=== PATIENT | male | born 1955 | race Caucasian/White ===

== ENCOUNTER 2017-02-10 00:36 | Inpatient (IN) | payer OTHER ==
--- NOTE | 2017-02-10 02:36 | PDOC ---
History of Present Illness - General History Source: Patient Exam Limitations: No Limitations - History of Present Illness Initial Comments: 02/10/17 03:10 The patient is a 61 year old male with significant past medical history of diabetes who presents to the ED for 1 day of intermittent right lower quadrant. Patient reports associated nausea and vomiting. Denies diarrhea. States he is unable to tolerate foods or liquids. Patient denies any radiation of pain to the flank or groin. The patient denies fever, chills, cough, SOB, chest pain, and palpitations. Allergies: NKDA Social History: No alcohol, tobacco, or drug use reported. Past Surgical History: None reported PCP: Dr. Juan Melvin <Carol Duval - Last Filed: 02/10/17 06:08> - General History Source: Patient <SteveEzequiel starr - Last Filed: 02/10/17 06:13> - General Chief Complaint: Pain Stated Complaint: ABD PAIN Time Seen by Provider: 02/10/17 02:33 Past History <Carol Duval - Last Filed: 02/10/17 06:08> - Psycho/Social/Smoking Cessation Hx Suicidal Ideation: No Smoking History: Never smoked Have you smoked in the past 12 months: No Information on smoking cessation initiated: No Hx Alcohol Use: No Drug/Substance Use Hx: No <Ezequiel Waters - Last Filed: 02/10/17 06:13> - Past Medical History Allergies/Adverse Reactions: Allergies Allergy/AdvReac Type Severity Reaction Status Date / Time No Known Allergies Allergy Verified 02/10/17 02:05 Review of Systems - Review of Systems Able to Perform ROS?: Yes Comments:: 02/10/17 03:10 CONSTITUTIONAL: +decrease appetite Absent: fever, no chills, no fatigue EYES: Absent: visual changes ENT: Absent: ear pain, no sore throat CARDIOVASCULAR: Absent: chest pain, no palpitations RESPIRATORY: Absent: cough, no SOB GI: +right lower quadrant pain, nausea, vomiting Absent: no constipation, no diarrhea GENITOURINARY: Absent: dysuria, no frequency, no hematuria MUSCULOSKELETAL: Absent: back pain, no arthralgia, no myalgia SKIN: Absent: rash NEURO: Absent: headache <Carol Duval - Last Filed: 02/10/17 06:08> *Physical Exam - Vital Signs Last Vital Signs Temp Pulse Resp BP Pulse Ox 98.1 F 77 14 138/89 97 02/10/17 02:05 02/10/17 02:05 02/10/17 02:05 02/10/17 02:05 02/10/17 02:05 - Physical Exam Comments: 02/10/17 03:10 GENERAL: Well-appearing, well-nourished. No apparent distress. HEENT: Normocephalic, atraumatic. PERRL, EOM intact. CARDIOVASCULAR: Normal S1, S2. Regular rate and rhythm. PULMONARY: Clear to auscultation bilaterally. ABDOMEN: Soft, non-distended, right lower quadrant tenderness. No rebound or guarding. EXTREMITIES: Normal ROM in all four extremities. No gross deformities. SKIN: Warm, dry. No rash NEUROLOGICAL: No focal neurological deficits. <Carol Duval - Last Filed: 02/10/17 06:08> - Vital Signs Last Vital Signs Temp Pulse Resp BP Pulse Ox 98.1 F 77 14 138/89 97 02/10/17 02:05 02/10/17 02:05 02/10/17 02:05 02/10/17 02:05 02/10/17 02:05 <Ezequiel Waters - Last Filed: 02/10/17 06:13> Heart Score/ECG Review - ECG Impressions Comment:: 02/10/17 06:08 NSR @72bpm Nonspecific T wave abnormality Abnormal ECG <Carol Duval - Last Filed: 02/10/17 06:08> ED Treatment Course - LABORATORY CBC & Chemistry Diagram: 02/10/17 02:54 02/10/17 02:54 - ADDITIONAL ORDERS Additional order review: 02/10/17 02:54 RBC 4.67 MCV 89.9 MCHC 33.7 RDW 13.2 MPV 7.9 Neutrophils % 77.5 Lymphocytes % 9.0 Monocytes % 12.5 H Eosinophils % 0.7 Basophils % 0.3 - RADIOLOGY Radiograph Interpretation: 02/10/17 05:14 Exam: Contrast-enhanced CT abdomen and pelvis Reviewed by Imaging industrial relations specialist: Findings: The lung bases are clear. Hepatic steatosis is noted with sparing around the gallbladder fossa. The gallbladder spleen and pancreas all have a normal unenhanced appearance. The adrenal glands are unremarkable. The left kidney has a normal unenhanced appearance. The right kidney is hydronephrotic with right hydroureter can be traced into the pelvis. An obstructing calculus present in the distal right ureter (image 122) and measures 2 mm in diameter. The appendix is not identified. No cecal thickening or pericecal inflammatory changes are seen. The gastrointestinal tract does not appear obstructed. No thickened or dilated bowel is seen. There is no mesenteric infiltration or free fluid. The urinary bladder, prostate and seminal vesicles are unremarkable. A small fat containing left inguinal hernia is noted. No abdominal or pelvic adenopathy is seen. No lytic or blastic destructive osseous lesions are seen. Impression: Obstructing calculus in the distal right ureter. - Medications Given in the ED: ED Medications Discontinued Medications Generic Name Dose Route Start Last Admin Trade Name Freq PRN Reason Stop Dose Admin Ondansetron HCl 4 mg 02/10/17 02:52 02/10/17 02:53 Zofran Injection IVPUSH 02/10/17 02:53 4 mg ONCE STA Administration <Carol Duval - Last Filed: 02/10/17 06:08> - LABORATORY CBC & Chemistry Diagram: 02/10/17 02:54 02/10/17 02:54 <Ezequiel Waters - Last Filed: 02/10/17 06:13> Medical Decision Making - Medical Decision Making 02/10/17 05:[address] Ivy Saldivar (via answering service) at 5:40 Awaiting call back 02/10/17 06:07 Second call placed to Dr. Saldivar (via answering service) at 6:07 and patient's case was discussed. <Carol Duval - Last Filed: 02/10/17 06:08> - Medical Decision Making 02/10/17 05:31 Dr. Waters: The scribe's documentation has been prepared under my direction and personally reviewed by me in its entirery. I confirm that the note above accurately reflects all work, treatment, procedures, and medical decision making performed by me. 02/10/17 06:13 <Ezequiel Waters - Last Filed: 02/10/17 06:13> *DC/Admit/Observation/Transfer - Attestations Scribe Attestion: 02/10/17 03:10 Documentation prepared by Carol Duval, acting as medical reimbursement specialist for Ezequiel Waters MD/DO. <Carol Duval - Last Filed: 02/10/17 06:08> - Discharge Dispostion Admit: Yes <Ezequiel Waters - Last Filed: 02/10/17 06:13> Diagnosis at time of Disposition: Renal colic on right side Pancreatitis Qualifiers: Chronicity: acute Pancreatitis type: other Acute pancreatitis complication: unspecified Qualified Code(s): K85.80 - Other acute pancreatitis without necrosis or infection - Discharge Dispostion Condition at time of disposition: Stable - Referrals Referrals: Juan Melvin MD [Primary Care Provider] -
[2017-02-10] MEDS ORDERED: SODIUM CHLORIDE 1,000 ML IV STA (02:41)
[2017-02-10] MEDS ORDERED: ONDANSETRON 4 MG/2 ML VIAL IVPUSH STA (02:52)
[2017-02-10 02:57] LABS: BASOPHIL 0.3 % (0-2.0); EOSINOPHIL 0.7 % (0-4.5); MCH 30.3 pg (25.7-33.7); MCHC 33.7 g/dl (32.0-35.9); MEAN CELL VOLUME 89.9 fl (80-96); MEAN PLT VOLUME 7.9 fl (7.5-11.1); NEUTROPHILS 77.5 % (42.8-82.8); PLATELET COUNT 241 K/MM3 (134-434); RDW 13.2 % (11.9-15.9)
[2017-02-10 03:14] LABS: URINE APPEARANCE CLEAR; URINE BILIRUBIN NEGATIVE (NEGATIVE); URINE BLOOD NEGATIVE (NEGATIVE); URINE COLOR YELLOW; URINE GLUCOSE (UA) 3+ (NEGATIVE); URINE KETONE NEGATIVE (NEGATIVE); URINE LEUK ESTERASE NEGATIVE (NEGATIVE); URINE NITRITE NEGATIVE (NEGATIVE); URINE UROBILINOGEN NEGATIVE E.U./dl (0.2-1.0)
[2017-02-10 03:16] LABS: INR 0.99 (0.82-1.09); PROTHROMBIN TIME (PATIENT) 10.9 SEC (9.98-11.88)
[2017-02-10 03:17] LABS: URINE PROTEIN 1+ (NEGATIVE)
[2017-02-10 03:19] LABS: URINE MUCUS RARE; URINE WBC <1 /hpf (3-5)
[2017-02-10 03:29] LABS: ALBUMIN 3.6 g/dl (3.4-5.0); BILIRUBIN,TOTAL 0.5 mg/dL (0.2-1.0); CALCIUM 9.3 mg/dL (8.5-10.1); COCKROFT - GAULT 65.83; CREATININE 1.4 mg/dL (0.7-1.3); TOT PROT 6.8 g/dl (6.4-8.2)
[2017-02-10] MEDS ORDERED: morphine CARPU-JECT 2 MG/1 ML DISP.SYRIN IVPUSH ONE (05:28)
[2017-02-10] MEDS ORDERED: morphine CARPU-JECT 4 MG/1 ML DISP.SYRIN ONE ×2 (05:31→08:04)
[2017-02-10] MEDS ORDERED: ONDANSETRON 4 MG/2 ML VIAL IVPB PRN (07:08)
[2017-02-10] MEDS: morphine CARPU-JECT 4 MG/1 ML DISP.SYRIN IVPUSH PRN ×3 (08:00→21:28)
[2017-02-10] MEDS: DEXTROSE 5%-NORMAL SALINE 1,000 ML IV SCH ×2 (08:00→16:46)
--- NOTE | 2017-02-10 09:13 | HP ---
Admitting History and Physical - Admission History of Present Illness: 61 year old male with significant past medical history of diabetes who presents to the ED for 1 day of intermittent right lower quadrant. Patient reports associated nausea and vomiting. Denies diarrhea. States he is unable to tolerate foods or liquids. Patient denies any radiation of pain to the flank or groin. 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 Cardiovascular: No: CAD, HTN, Hyperlipdemia Renal/: Yes: Renal Calculi - Smoking History Smoking history: Never smoked Have you smoked in the past 12 months: No - Alcohol/Substance Use Hx Alcohol Use: No Home Medications - Allergies Allergies/Adverse Reactions: Allergies Allergy/AdvReac Type Severity Reaction Status Date / Time No Known Allergies Allergy Verified 02/10/17 02:05 Review of Systems - Review of Systems Cardiovascular: denies: Chest Pain Gastrointestinal: reports: Abdominal Pain Genitourinary: reports: Flank Pain (RT) Physical Examination Vital Signs: Vital Signs Temperature 98.2 F 02/10/17 08:00 Pulse Rate 80 02/10/17 08:00 Respiratory Rate 18 02/10/17 08:00 Blood Pressure 133/74 02/10/17 08:00 O2 Sat by Pulse Oximetry (%) 99 02/10/17 08:00 Cardiovascular: Yes: Regular Rate and Rhythm Respiratory: Yes: Regular, CTA Bilaterally Gastrointestinal: Yes: Normal Bowel Sounds, Soft, Tenderness (RT FLANK/RLQ) Renal/: Yes: CVA Tenderness - Right Imaging - Results Cat Scan: Report Reviewed Problem List - Problems (1) Renal colic on right side Assessment/Plan: UROLOGY CONSULT MONITOR RENAL FUNCTION PAIN CONTROL Code(s): N23 - UNSPECIFIED RENAL COLIC (2) Pancreatitis Assessment/Plan: ATYPICAL SYMPTOMS REPEAT LABS GI CONSULT Code(s): K85.90 - ACUTE PANCREATITIS WITHOUT NECROSIS OR INFECTION, UNSP Qualifiers: Chronicity: acute Pancreatitis type: other Acute pancreatitis complication: unspecified Qualified Code(s): K85.80 - Other acute pancreatitis without necrosis or infection; K85.8 - Other acute pancreatitis (3) Renal insufficiency Assessment/Plan: MONITOR Code(s): N28.9 - DISORDER OF KIDNEY AND URETER, UNSPECIFIED (4) Diabetes Assessment/Plan: A1C BGM ENDO Code(s): E11.9 - TYPE 2 DIABETES MELLITUS WITHOUT COMPLICATIONS
[2017-02-10] MEDS: LEVOFLOXACIN 500 MG IVPB 100 ML IVPB SCH (10:16)
--- NOTE | 2017-02-10 10:49 | EKG ---
Test Reason : Blood Pressure : / mmHG Vent. Rate : 072 BPM Atrial Rate : 072 BPM P-R Int : 152 ms QRS Dur : 086 ms QT Int : 418 ms P-R-T Axes : 033 035 004 degrees QTc Int : 457 ms NORMAL SINUS RHYTHM NONSPECIFIC T WAVE ABNORMALITY ABNORMAL ECG NO PREVIOUS ECGS AVAILABLE Confirmed by CHARAN KISER MD ([id number]) on 02/10/2017 10:48:33 AM Referred By: Confirmed By:CHARAN KISER MD
[2017-02-10 11:04] LABS: ALBUMIN 3.4 g/dl (3.4-5.0); ALK PHOS 69 U/L (45-117); AMYLASE 210 U/L (25-115); ANION GAP 9 (8-16); BILIRUBIN,TOTAL 0.7 mg/dL (0.2-1.0); CALCIUM 8.7 mg/dL (8.5-10.1); CO2 29 mmol/L (21-32); CREATININE 1.2 mg/dL (0.7-1.3); GLUCOSE,RANDOM 178 mg/dL (74-106); SGOT/AST 17 U/L (15-37); SGPT/ALT 28 U/L (12-78); TOT PROT 6.3 g/dl (6.4-8.2)
[2017-02-10 11:08] LABS: BASOPHIL 0.5 % (0-2.0); EOSINOPHIL 1.4 % (0-4.5); MCH 30.7 pg (25.7-33.7); MCHC 34.2 g/dl (32.0-35.9); MEAN CELL VOLUME 89.9 fl (80-96); MEAN PLT VOLUME 7.5 fl (7.5-11.1); PLATELET COUNT 217 K/MM3 (134-434); RDW 13.1 % (11.9-15.9)
[2017-02-10 11:30] LABS: ALBUMIN 3.3 g/dl (3.4-5.0); ALK PHOS 64 U/L (45-117); ANION GAP 8 (8-16); BILIRUBIN,TOTAL 0.7 mg/dL (0.2-1.0); CALCIUM 8.6 mg/dL (8.5-10.1); CO2 30 mmol/L (21-32); COCKROFT - GAULT 83.78; CREATININE 1.1 mg/dL (0.7-1.3); GLUCOSE,RANDOM 190 mg/dL (74-106); SGOT/AST 16 U/L (15-37); SGPT/ALT 27 U/L (12-78); TOT PROT 6.1 g/dl (6.4-8.2)
[2017-02-10] MEDS: PANTOPRAZOLE SODIUM 100 ML IVPB SCH (12:56)
[2017-02-10] MEDS: INSULIN SLIDING SCALE (NOVOLOG) 1 VIAL SQ SCH ×3 (13:02→21:39)
--- NOTE | 2017-02-10 13:04 | PN ---
Progress Note (short form) - Note Progress Note: ID consult dictated imp/reccd 61 year old man with DM for 15 eyars, RECENTLY ESTARTED ON TRULICITY for DM- admitted with RLQ pain and nausea and vomiting no fevers or chills no hematuria remote history of nephrolithiasis in the past I think he has 2 processes PANCREATITIS- I suspect secondary to TRULICITY- endocrine and gi consult pending Nephrolithiasis- ct scan with obstructing stone on the right - urology to see Problem List - Problems (1) Pancreatitis Code(s): K85.90 - ACUTE PANCREATITIS WITHOUT NECROSIS OR INFECTION, UNSP Qualifiers: Chronicity: acute Pancreatitis type: other Acute pancreatitis complication: unspecified Qualified Code(s): K85.80 - Other acute pancreatitis without necrosis or infection; K85.8 - Other acute pancreatitis (2) Renal colic on right side Code(s): N23 - UNSPECIFIED RENAL COLIC (3) Diabetes Code(s): E11.9 - TYPE 2 DIABETES MELLITUS WITHOUT COMPLICATIONS
--- NOTE | 2017-02-10 14:47 | CON.GI ---
Consult Consult Specialty:: gastroenterology Referred by:: Dr Rubio - History of Present Illness History of Present Illness: 61 y/o male with PMH of Diabetes, on Trulicity was doing well until he was awakened by severe rlq pain 1 am Thursday morning. This was associated with nausea and vomiting. Pain was persistent up to the time of admission. He denies constipation, diarrhea, rectal bleeding and weight loss. In the ER he was noted to have elevated WBC count and lipase. The cat scan revealed normal pancreas. Urinalysis negative for hematuria. 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 Cardio/Vascular: No: CAD, HTN, Hyperlipdemia Renal/: Yes: Renal Calculi - Alcohol/Substance Use Hx Alcohol Use: No - Smoking History Smoking history: Never smoked Have you smoked in the past 12 months: No Home Medications - Allergies Allergies/Adverse Reactions: Allergies Allergy/AdvReac Type Severity Reaction Status Date / Time No Known Allergies Allergy Verified 02/10/17 02:05 - Home Medications Home Medications: Ambulatory Orders Dulaglutide [Trulicity] 1.5 mg SQ WEEKLY 02/10/17 Family Disease History - Family Disease History Family History: Denies (colon and gastric cancer) Review of Systems - Review of Systems Constitutional: denies: Fever Eyes: denies: Blind Spots HENT: denies: Difficult Swallowing Cardiovascular: denies: Chest Pain Respiratory: denies: SOB Gastrointestinal: reports: Abdominal Pain (--RLQ). denies: No Symptoms, Bloating, Dysphagia, Indigestion, Nausea Physical Exam-GI Vital Signs: Vital Signs Temperature 98.2 F 02/10/17 08:00 Pulse Rate 75 02/10/17 13:03 Respiratory Rate 18 02/10/17 13:03 Blood Pressure 126/68 02/10/17 13:03 O2 Sat by Pulse Oximetry (%) 99 02/10/17 13:03 Constitutional: Yes: Obese Eyes: Yes: Conjunctiva Clear HENT: Yes: Atraumatic Neck: Yes: Trachea Midline Cardiovascular: Yes: Regular Rate and Rhythm Respiratory: Yes: CTA Bilaterally ...Palpate: Yes: Soft, Tenderness (--rlq). No: Firm/Rigid, Guarding, Hepatomegaly, Mass, Splenomegaly ...Percussion: Yes: Tympanitic Labs: CBC, BMP 02/10/17 10:50 02/10/17 10:50 INR, PTT INR 0.99 (0.82-1.09) 02/10/17 02:54 Imaging - Results Cat Scan: Image Reviewed ( no evidence of appendicitis) Problem List - Problems (1) RLQ abdominal pain Assessment/Plan: etiology unclear associated with elevated WBC r/o ischemia, appendicitis, neoplasm R> IV hydration surgical consultation lupus antibody hematology consult for hypercoaguable state Code(s): R10.31 - RIGHT LOWER QUADRANT PAIN
[2017-02-10 16:11] VITALS: BMI 29.6
[2017-02-10] MEDS: ACETAMINOPHEN 1000 MG/100 ML VIAL (NON FORMULARY) IVPB PRN (18:22)
--- NOTE | 2017-02-10 20:11 | CONS ---
DATE OF CONSULTATION: 02/10/2017 REQUESTED BY: Maria Dolores Rubio MD This is a 61-year-old man with a 15-year history of diabetes. He is followed by Dr. Melvin. He comes to the emergency room with 1 day of intermittent right lower quadrant pain. He woke up with this on Thursday morning, cast iron dipper. He tried to go to work. He went to work for half the day. He came home. He started having nausea and vomiting. He was unable to eat and he came to the emergency room. There was no hematuria, or fevers or chills. His past medical history is notable for prior nephrolithiasis and diabetes. He has no known drug allergies. MEDICATIONS: He was recently started on Trulicity, which he has been taking for 2 weeks now. 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 There is no history of any substance use. REVIEW OF SYSTEMS: As per HPI. He has no diarrhea. His abdominal pain is improving. He is resting comfortably. PHYSICAL EXAMINATION: Vital Signs: Temperature is 98.2. Pulse of 80. Blood pressure 133/74. Respiratory rate is 18. Saturating 99% on room air. HEENT: Normocephalic. His eyes are anicteric. Neck: Supple. Lungs: Clear to auscultation. Heart: Regular rate and rhythm. Abdomen: Soft, currently nontender. Extremities: Without edema. Labs are notable for white count of 15 on admission, 12 this morning. Hemoglobin is 13.5. BUN 24 and creatinine 1.4 on admission, now BUN 21 and creatinine 1.1. His lipase was 4649, which improved to 1484. Urinalysis is notable for 3+ glucose and 1+ protein. There is no blood. He had a CAT scan of his abdomen and pelvis that is notable for a 2.5-mm obstructing right ureterovesical junction stone with mild right hydro and hydroureter. In summary, this is a 61-year-old man with diabetes, who I think has pancreatitis, I suspect secondary to Trulicity. Endocrine and GI consults are pending. Number 2, nephrolithiasis with obstructing stone: Urology is to see, and he will continue on Levaquin at this time. Further recommendations to follow based on his clinical course. RAMONASukumar [id number]
[2017-02-10] MEDS ORDERED: ZOLPIDEM TARTRATE 5 MG TABLET PO PRN (20:20)
--- NOTE | 2017-02-11 00:27 | CONSULT ---
Consult Consult Specialty:: endocrine/diabetes mellitus Referred by:: dr.annabi vergara Reason for Consultation:: diabetes mellitus - History of Present Illness Chief Complaint: high sugars,and abdominal pain History of Present Illness: 61 y/o male with PMH of Diabetes, on Trulicity was doing well until he was awakened by severe rlq pain 1 am Thursday morning. This was associated with nausea and vomiting. Pain was persistent up to the time of admission. He denies constipation, diarrhea, rectal bleeding and weight loss. 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 Cardio/Vascular: No: CAD, HTN, Hyperlipdemia Renal/: Yes: Renal Calculi - Alcohol/Substance Use Hx Alcohol Use: No - Smoking History Smoking history: Never smoked Have you smoked in the past 12 months: No Home Medications - Allergies Allergies/Adverse Reactions: Allergies Allergy/AdvReac Type Severity Reaction Status Date / Time No Known Allergies Allergy Verified 02/10/17 02:05 - Home Medications Home Medications: Ambulatory Orders Dulaglutide [Trulicity] 1.5 mg SQ WEEKLY 02/10/17 Review of Systems - Review of Systems Constitutional: reports: Loss of Appetite, Weakness Eyes: reports: No Symptoms HENT: reports: No Symptoms Neck: reports: No Symptoms Cardiovascular: reports: No Symptoms Respiratory: reports: No Symptoms Gastrointestinal: reports: Constipation Genitourinary: reports: No Symptoms Breasts: reports: No Symptoms Reported Musculoskeletal: reports: No Symptoms Integumentary: reports: No Symptoms Neurological: reports: No Symptoms Endocrine: reports: Unexplained Weight Gain Hematology/Lymphatic: reports: No Symptoms Psychiatric: reports: No Symptoms Physical Exam Vital Signs: Vital Signs Temperature 98.3 F 02/10/17 18:00 Pulse Rate 64 02/10/17 18:00 Respiratory Rate 18 02/10/17 18:00 Blood Pressure 150/88 02/10/17 18:00 O2 Sat by Pulse Oximetry (%) 96 02/10/17 16:13 Constitutional: Yes: Anxious Eyes: Yes: EOM Intact HENT: Yes: Normocephalic Neck: Yes: Trachea Midline Cardiovascular: Yes: Regular Rate and Rhythm Respiratory: Yes: CTA Bilaterally Gastrointestinal: Yes: Abdomen, Obese, Hypoactive Bowel Sounds, Tenderness ...Rectal Exam: Yes: Deferred Renal/: Yes: WNL Breast(s): Yes: WNL Musculoskeletal: Yes: WNL Extremities: Yes: WNL Edema: No Peripheral Pulses WNL: Yes Integumentary: Yes: WNL Neurological: Yes: WNL, Alert Labs: CBC, BMP 02/10/17 10:50 02/10/17 10:50 Problem List - Problems (1) Diabetes Code(s): E11.9 - TYPE 2 DIABETES MELLITUS WITHOUT COMPLICATIONS (2) Pancreatitis Code(s): K85.90 - ACUTE PANCREATITIS WITHOUT NECROSIS OR INFECTION, UNSP Qualifiers: Chronicity: acute Pancreatitis type: other Acute pancreatitis complication: unspecified Qualified Code(s): K85.80 - Other acute pancreatitis without necrosis or infection; K85.8 - Other acute pancreatitis (3) RLQ abdominal pain Code(s): R10.31 - RIGHT LOWER QUADRANT PAIN (4) Renal colic on right side Code(s): N23 - UNSPECIFIED RENAL COLIC Assessment/Plan Current Active Problems Diabetes (Acute) Pancreatitis (Acute) RLQ abdominal pain (Acute) Renal colic on right side (Acute) Renal insufficiency (Acute) diabetes mellitus/gastroparesis renal nephrolithiasis hydronephrosis right renal colic Abnormal Lab Results 02/10/17 02/10/17 02/10/17 02:54 02:54 03:06 WBC 15.0 H Monocytes % 12.5 H BUN 24 H Creatinine 1.4 H Random Glucose 289 H Hemoglobin A1c % B-Natriuretic Peptide 134.62 H Total Protein Albumin Total Amylase Lipase 4649 H Urine Protein 1+ H Urine Glucose (UA) 3+ H 02/10/17 02/10/17 02/10/17 09:30 10:50 10:50 WBC 12.0 H Monocytes % 13.5 H BUN 20 H 21 H Creatinine Random Glucose 178 H D 190 H Hemoglobin A1c % B-Natriuretic Peptide Total Protein 6.3 L 6.1 L Albumin 3.3 L Total Amylase 210 H Lipase 1484 H Urine Protein Urine Glucose (UA) 02/10/17 10:50 WBC Monocytes % BUN Creatinine Random Glucose Hemoglobin A1c % 7.7 H B-Natriuretic Peptide Total Protein Albumin Total Amylase Lipase Urine Protein Urine Glucose (UA) plan; bgm qid novolog scale ivfluid rehydration gu consult cmp and cbc Current Medications Generic Name Dose Route Start Last Admin Trade Name Freq PRN Reason Stop Dose Admin Acetaminophen 1,000 mg 02/10/17 07:08 02/10/17 18:22 Ofirmev Injection - IVPB 02/11/17 01:09 1,000 mg Q6H PRN Administration FEVER OR PAIN Dextrose/Sodium Chloride 1,000 mls @ 75 mls/hr 02/10/17 07:15 02/10/17 16:46 D5-Ns - IV 75 mls/hr ASDIR DARLENE Administration Pantoprazole Sodium 100 mls @ 200 mls/hr 02/10/17 10:00 02/10/17 12:56 Protonix 40mg Ivpb (Pre-Docked) IVPB 200 mls/hr DAILY DARLENE Administration Levofloxacin 100 mls @ 100 mls/hr 02/10/17 10:00 02/10/17 10:16 Levaquin 500 Mg Premixed Ivpb - IVPB 100 mls/hr DAILY DARLENE Administration Insulin Aspart 1 vial 02/10/17 11:00 02/10/17 21:39 Novolog Vial Sliding Scale - SQ Not Given ACHS DARLENE Protocol Morphine Sulfate 4 mg 02/10/17 07:08 02/10/17 21:28 Morphine Injection - IVPUSH 4 mg Q4H PRN Administration PAIN Ondansetron HCl 4 mg 02/10/17 07:08 Zofran Injection IVPB Q6H PRN NAUSEA Zolpidem Tartrate 10 mg 02/10/17 20:20 02/10/17 21:28 Ambien - PO 10 mg HS PRN Administration INSOMNIA
[2017-02-11] MEDS: ACETAMINOPHEN 1000 MG/100 ML VIAL (NON FORMULARY) IVPB PRN (00:44)
[2017-02-11] MEDS: morphine CARPU-JECT 4 MG/1 ML DISP.SYRIN IVPUSH PRN ×3 (05:42→14:18)
[2017-02-11] MEDS: DEXTROSE 5%-NORMAL SALINE 1,000 ML IV SCH ×3 (05:48→22:50)
[2017-02-11] MEDS: INSULIN SLIDING SCALE (NOVOLOG) 1 VIAL SQ SCH ×4 (06:16→22:11)
[2017-02-11 07:20] LABS: BASOPHIL 0.7 % (0-2.0); EOSINOPHIL 1.4 % (0-4.5); MCH 30.8 pg (25.7-33.7); MCHC 34.4 g/dl (32.0-35.9); MEAN CELL VOLUME 89.4 fl (80-96); MEAN PLT VOLUME 7.7 fl (7.5-11.1); NEUTROPHILS 75.2 % (42.8-82.8); PLATELET COUNT 217 K/MM3 (134-434); RDW 12.9 % (11.9-15.9); WHITE BLOOD COUNT 12.2 K/mm3 (4.0-10.0)
[2017-02-11 07:48] LABS: ALBUMIN 3.3 g/dl (3.4-5.0); ANION GAP 6 (8-16); CALCIUM 8.5 mg/dL (8.5-10.1); CO2 31 mmol/L (21-32)
[2017-02-11 07:54] LABS: ALK PHOS 70 U/L (45-117); BILIRUBIN,TOTAL 0.8 mg/dL (0.2-1.0); COCKROFT - GAULT 94.4; GLUCOSE,RANDOM 154 mg/dL (74-106); SGOT/AST 14 U/L (15-37); SGPT/ALT 25 U/L (12-78); TOT PROT 6.3 g/dl (6.4-8.2)
--- NOTE | 2017-02-11 09:00 | PN ---
Progress Note (short form) - Note Progress Note: continued intermittent RLQ pain radiating to the flank no nausea or vomiting Vital Signs Period Temp Pulse Resp BP Sys/Blake Pulse Ox Last 24 Hr 98.1 F-98.3 F 60-78 18-18 118-164/65-96 96-99 cor-rrr lungs clear abd- R cvat, RLQ pain on palpation ext no edema CBC, BMP 02/11/17 06:00 02/11/17 06:00 a/p PANCREATITIS- I suspect secondary to TRULICITY- endocrine and gi consult noted Nephrolithiasis- ct scan with obstructing stone on the right - urology to see on levaquin, no urine culture was sent prior to antiibotics, wbc trending down, would continue DM Problem List - Problems (1) Pancreatitis Code(s): K85.90 - ACUTE PANCREATITIS WITHOUT NECROSIS OR INFECTION, UNSP Qualifiers: Qualified Code(s): K85.80 - Other acute pancreatitis without necrosis or infection; K85.8 - Other acute pancreatitis (2) Renal colic on right side Code(s): N23 - UNSPECIFIED RENAL COLIC (3) Diabetes Code(s): E11.9 - TYPE 2 DIABETES MELLITUS WITHOUT COMPLICATIONS
--- NOTE | 2017-02-11 09:02 | CON.GU ---
Consult Consult Specialty:: urolgogy Reason for Consultation:: right hydronephrosis with right uvj stone - History of Present Illness Chief Complaint: right renal colic History of Present Illness: Patient with history of right hydronephrosis secondary to right uvj stone. Patient with continued pain with nausea. Denies gross hematuria, fever, or chills Patient is currently not experiencing vomiting. Patient with signinficant pain. 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 Cardio/Vascular: No: CAD, HTN, Hyperlipdemia Renal/: Yes: Renal Calculi - Alcohol/Substance Use Hx Alcohol Use: No - Smoking History Smoking history: Never smoked Have you smoked in the past 12 months: No Home Medications - Allergies Allergies/Adverse Reactions: Allergies Allergy/AdvReac Type Severity Reaction Status Date / Time No Known Allergies Allergy Verified 02/10/17 02:05 - Home Medications Home Medications: Ambulatory Orders Dulaglutide [Trulicity] 1.5 mg SQ WEEKLY 02/10/17 Physical Exam- Vital Signs: Vital Signs Temperature 98.3 F 02/10/17 18:00 Pulse Rate 64 02/10/17 18:00 Respiratory Rate 18 02/10/17 18:00 Blood Pressure 150/88 02/10/17 18:00 O2 Sat by Pulse Oximetry (%) 98 02/10/17 22:00 Constitutional: Yes: Well Nourished, No Distress, Anxious Eyes: Yes: WNL, Conjunctiva Clear, EOM Intact HENT: Yes: WNL, Atraumatic, Normocephalic Neck: Yes: WNL, Supple, Trachea Midline Cardiovascular: Yes: WNL, Regular Rate and Rhythm Respiratory: Yes: WNL, Regular Gastrointestinal: Yes: Normal Bowel Sounds, Soft Renal/: Yes: CVA Tenderness - Right Kidneys: Yes: FLank Pain Right Pelvis: Yes: Bladder Non Palpable Testicles: Yes: WNL Scrotum: Yes: WNL Penis: Yes: WNL Prostate Exam: Yes: Asymmetrical, Swollen Musculoskeletal: Yes: WNL Extremities: Yes: WNL Labs: CBC, BMP 02/11/17 06:00 02/11/17 06:00 Assessment/Plan impression right hydronephrosis with right upj stone and intractable pain plan patient is to be scheduled emergently for righureteral stent placement and stone basketing today
[2017-02-11] MEDS ORDERED: TAMSULOSIN HCL 0.4 MG CAP.ER.24H (FP) PO ONE (09:30)
[2017-02-11] MEDS: LEVOFLOXACIN 500 MG IVPB 100 ML IVPB SCH (09:39)
[2017-02-11] MEDS: PANTOPRAZOLE SODIUM 100 ML IVPB SCH (09:40)
[2017-02-11] MEDS ORDERED: ACETAMINOPHEN 1000 MG/100 ML VIAL (NON FORMULARY) IVPB PRN ×2 (10:34→20:37)
[2017-02-11] MEDS ORDERED: ePHEDrine SULFATE 50 MG/1 ML AMPULE ONE (19:15)
[2017-02-11] MEDS ORDERED: MIDAZOLAM HCL 2 MG/2 ML SINGLE DOSE VIAL ONE (19:16)
[2017-02-11] MEDS ORDERED: ROCURONIUM BROMIDE 50 MG/5 ML VIAL ONE (19:16)
[2017-02-11] MEDS ORDERED: SUCCINYLCHOLINE CHLORIDE 200 MG/10 ML VIAL ONE (19:16)
[2017-02-11] MEDS ORDERED: PROPOFOL 20 ML ONE ×3 (19:16)
[2017-02-11] MEDS ORDERED: LABETALOL HCL 5 MG/1 ML (100MG/20 ML VIAL) ONE ×2 (19:25→19:28)
--- NOTE | 2017-02-11 19:45 | PN ---
Progress Note, Physician Chief Complaint: RLQ ABDOMINAL PAIN History of Present Illness: 61 year old male with significant past medical history of diabetes who presents to the ED for 1 day of intermittent right lower quadrant. Patient reports associated nausea and vomiting. Denies diarrhea. States he is unable to tolerate foods or liquids. Patient denies any radiation of pain to the flank or groin. CT ABDOMEN SHOWED MILD HYDRONEPHROSIS OF RIGHT KIDNEY AND RIGHT UVJ STONE. RIGHT URETEROSCOPY WITH STONE BASKETING DONE TODAY. - Current Medication List Current Medications: Active Medications Acetaminophen (Ofirmev Injection -) 1,000 mg IVPB Q6H PRN PRN Reason: FEVER OR PAIN Stop: 02/12/17 04:35 Last Admin: 02/11/17 11:31 Dose: 1,000 mg Dextrose/Sodium Chloride (D5-Ns -) 1,000 mls @ 75 mls/hr IV ASDIR DARLENE Last Admin: 02/11/17 09:46 Dose: Not Given Pantoprazole Sodium (Protonix 40mg Ivpb (Pre-Docked)) 100 mls @ 200 mls/hr IVPB DAILY [facility] Last Admin: 02/11/17 09:40 Dose: 200 mls/hr Levofloxacin (Levaquin 500 Mg Premixed Ivpb -) 100 mls @ 100 mls/hr IVPB DAILY [facility] Last Admin: 02/11/17 09:39 Dose: 100 mls/hr Insulin Aspart (Novolog Vial Sliding Scale -) 1 vial SQ ACHS DARLENE PRN Reason: Protocol Last Admin: 02/11/17 17:34 Dose: Not Given Morphine Sulfate (Morphine Injection -) 4 mg IVPUSH Q4H PRN PRN Reason: PAIN Last Admin: 02/11/17 14:18 Dose: 4 mg Ondansetron HCl (Zofran Injection) 4 mg IVPB Q6H PRN PRN Reason: NAUSEA Last Admin: 02/11/17 14:08 Dose: 4 mg Zolpidem Tartrate (Ambien -) 10 mg PO HS PRN PRN Reason: INSOMNIA Last Admin: 02/10/17 21:28 Dose: 10 mg - Objective Vital Signs: Vital Signs Temperature 98.3 F 02/10/17 18:00 Pulse Rate 64 02/10/17 18:00 Respiratory Rate 18 02/11/17 09:00 Blood Pressure 150/88 02/10/17 18:00 O2 Sat by Pulse Oximetry (%) 98 02/11/17 09:00 Constitutional: Yes: Well Nourished, No Distress, Calm Cardiovascular: Yes: Regular Rate and Rhythm Respiratory: Yes: Regular Gastrointestinal: Yes: Normal Bowel Sounds, Tenderness (RLQ) Musculoskeletal: Yes: WNL Edema: No Labs: CBC, BMP 02/11/17 06:00 02/11/17 06:00 INR, PTT INR 0.99 (0.82-1.09) 02/10/17 02:54 Problem List - Problems (1) Diabetes Assessment/Plan: UNCONTROLLED WITH HGA1C OF 7.7 Code(s): E11.9 - TYPE 2 DIABETES MELLITUS WITHOUT COMPLICATIONS (2) RLQ abdominal pain Assessment/Plan: DUE TO RIGHT HYDRONEPHROSIS. URETEROSCOPY TODAY Code(s): R10.31 - RIGHT LOWER QUADRANT PAIN (3) Renal colic on right side Code(s): N23 - UNSPECIFIED RENAL COLIC (4) Renal insufficiency Code(s): N28.9 - DISORDER OF KIDNEY AND URETER, UNSPECIFIED (5) Abnormal pancreas function test Assessment/Plan: NO ACUTE PANCREATITIS SEEN ON CT ABDOMEN, COULD BE SECONDARY TO RENAL INSUFFICIENCY? OR IDIOPATHIC. MONITOR LABS FOR NOW Code(s): R94.8 - ABNORMAL RESULTS OF FUNCTION STUDIES OF ORGANS AND SYSTEMS Assessment/Plan LABS PAIN MANAGEMENT PHYSICAL THERAPY IV ABX ID AND GI CONSULT
--- NOTE | 2017-02-11 20:01 | OP ---
Operative Note - Note: Operative Date: 02/11/17 Pre-Operative Diagnosis: right ureteral stone with hydronephrosis Operation: cystoscopy/right retrograde pyelogram/right urereteroscopic stone basketing/right ureteral stent placement Findings: 4mm distal stone Post-Operative Diagnosis: Same as Pre-op Surgeon: Molina Griffin Anesthesia: General Specimens Removed: right ureteral stone Drains & Tubes with Location: 6 fr/24 cm stent Operative Report Dictated: Yes
[2017-02-11] MEDS ORDERED: PROMETHAZINE HCL 25 MG/1 ML VIAL IVPUSH PRN (20:21)
[2017-02-11] MEDS ORDERED: ONDANSETRON 4 MG/2 ML VIAL IVPUSH PRN (20:21)
[2017-02-11] MEDS ORDERED: LACTATED RINGERS SOLUTION 1,000 ML IV SCH (20:30)
[2017-02-11] MEDS ORDERED: morphine CARPU-JECT 4 MG/1 ML DISP.SYRIN IVPUSH PRN (20:37)
[2017-02-11] MEDS ORDERED: ONDANSETRON 4 MG/2 ML VIAL IVPB PRN (20:37)
[2017-02-11] MEDS ORDERED: ZOLPIDEM TARTRATE 5 MG TABLET PO PRN (20:37)
[2017-02-11] MEDS ORDERED: PATIENT'S OWN MEDICATION (NON-FORMULARY) (Dulaglutide [Trulicity] 1.5 MG) SQ SCH (20:37)
--- NOTE | 2017-02-12 00:24 | PN ---
Progress Note (short form) - Note Progress Note: right lq pain,renal colic has persistant pain relieved with tylenol iv Abnormal Lab Results 02/11/17 02/11/17 06:00 06:00 WBC 12.2 H Monocytes % 12.3 H Anion Gap 6 L Random Glucose 154 H AST 14 L Total Protein 6.3 L Albumin 3.3 L Laboratory Results - last 24 hr 02/11/17 02/11/17 02/11/17 05:40 06:00 06:00 WBC 12.2 H RBC 4.51 Hgb 13.9 Hct 40.3 MCV 89.4 MCHC 34.4 RDW 12.9 Plt Count 217 MPV 7.7 Neutrophils % 75.2 Lymphocytes % 10.4 D Monocytes % 12.3 H Eosinophils % 1.4 Basophils % 0.7 Sodium 140 Potassium 3.7 Chloride 103 Carbon Dioxide 31 Anion Gap 6 L BUN 17 Creatinine 1.0 Creat Clearance w eGFR > 60 POC Glucometer 182 Random Glucose 154 H Calcium 8.5 Total Bilirubin 0.8 AST 14 L ALT 25 Alkaline Phosphatase 70 Total Protein 6.3 L Albumin 3.3 L 02/11/17 02/11/17 02/11/17 11:22 17:32 21:30 WBC RBC Hgb Hct MCV MCHC RDW Plt Count MPV Neutrophils % Lymphocytes % Monocytes % Eosinophils % Basophils % Sodium Potassium Chloride Carbon Dioxide Anion Gap BUN Creatinine Creat Clearance w eGFR POC Glucometer 189 219 175 Random Glucose Calcium Total Bilirubin AST ALT Alkaline Phosphatase Total Protein Albumin diabetes mellitus hyperglycemia poor appetite renal colic plan for renal stenting for hydronephrosis renal stone ivfluid Problem List - Problems (1) Diabetes Code(s): E11.9 - TYPE 2 DIABETES MELLITUS WITHOUT COMPLICATIONS (2) Pancreatitis Code(s): K85.90 - ACUTE PANCREATITIS WITHOUT NECROSIS OR INFECTION, UNSP Qualifiers: Chronicity: acute Pancreatitis type: other Acute pancreatitis complication: unspecified Qualified Code(s): K85.80 - Other acute pancreatitis without necrosis or infection; K85.8 - Other acute pancreatitis (3) RLQ abdominal pain Code(s): R10.31 - RIGHT LOWER QUADRANT PAIN (4) Renal colic on right side Code(s): N23 - UNSPECIFIED RENAL COLIC
--- NOTE | 2017-02-12 01:28 | OP ---
DATE OF OPERATION: 02/11/2017 PREOPERATIVE DIAGNOSIS: Right ureteral stone with hydronephrosis. POSTOPERATIVE DIAGNOSIS: Right ureteral stone with hydronephrosis. PROCEDURE: Cystoscopy, right retrograde pyelogram, right ureteroscopic stone basketing and right ureteral stent placement. ATTENDING: Molina Verma MD ANESTHESIA: General. OPERTION: The patient was brought to the operating room and placed in the supine position on the operating table. The patient was given general anesthesia. He was then positioned in the dorsal lithotomy position and was prepped and draped in the usual sterile manner. Cystoscopy was performed and no evidence of stone within the bladder was noted. The patient was noted to have a 3+ prostate with significant bladder trabeculation. The right ureteral orifice had significant angulation. In order to safely place the open-ended catheter, a wire was necessary to be passed first. The open end was passed over the wire. Because of the amount of stricture in one area, it was felt that the stone was distal, beyond the intramural tunnel. It was decided to pass the wire initially and then perform a ureteroscopy. The wire was passed proximally at this point and the cystoscope and open-ended catheter were also removed. A rigid ureteroscope was utilized and right ureteroscopy was performed. A stone was seen. A retrograde pyelogram demonstrated significant high-grade hydroureteronephrosis. At this point, the stone was basketed under direct vision and removed. The patient tolerated the procedure very well. A stent was placed utilizing the Seldinger technique over the wire. The patient was then placed in the supine position and awoken from anesthesia. DISPOSITION: To the recovery room. COMPLICATIONS: None were noted. Sukumar [id number]
[2017-02-12] MEDS: INSULIN SLIDING SCALE (NOVOLOG) 1 VIAL SQ SCH ×4 (06:06→21:54)
--- NOTE | 2017-02-12 09:55 | PN ---
Progress Note (short form) - Note Progress Note: Post op day#1.S/P Cystoscopy with ureyeroscopy and stent placement under Ga uneventful.Patient stable.No any anesthesia related problem.Patient Dc from the the anesthesia care.
--- NOTE | 2017-02-12 10:50 | PN ---
Progress Note, Physician Chief Complaint: RLQ ABDOMINAL PAIN History of Present Illness: 61 year old male with significant past medical history of diabetes who presents to the ED for 1 day of intermittent right lower quadrant. Patient reports associated nausea and vomiting. Denies diarrhea. States he is unable to tolerate foods or liquids. Patient denies any radiation of pain to the flank or groin. CT ABDOMEN SHOWED MILD HYDRONEPHROSIS OF RIGHT KIDNEY AND RIGHT UVJ STONE. RIGHT URETEROSCOPY WITH STONE BASKETING DONE TODAY. WENT FOR THE PROCEDURE YESTERDAY, TOLERATED WELL. NO PAIN AT THE MOMENT. - Current Medication List Current Medications: Active Medications Fentanyl (Sublimaze Injection -) 50 mcg IVPUSH [id number] PRN PRN Reason: PAIN Stop: 02/14/17 20:22 Dextrose/Sodium Chloride (D5-Ns -) 1,000 mls @ 75 mls/hr IV ASDIR DARLENE Last Admin: 02/11/17 22:50 Dose: 75 mls/hr Levofloxacin (Levaquin 500 Mg Premixed Ivpb -) 100 mls @ 100 mls/hr IVPB DAILY [facility] Pantoprazole Sodium (Protonix 40mg Ivpb (Pre-Docked)) 100 mls @ 200 mls/hr IVPB DAILY [facility] Insulin Aspart (Novolog Vial Sliding Scale -) 1 vial SQ ACHS DARLENE PRN Reason: Protocol Last Admin: 02/12/17 06:06 Dose: Not Given Morphine Sulfate (Morphine Injection -) 4 mg IVPUSH Q4H PRN PRN Reason: PAIN Non-Formulary Medication (Dulaglutide [Trulicity]) 1.5 mg SQ We DARLENE Ondansetron HCl (Zofran Injection) 4 mg IVPB Q6H PRN PRN Reason: NAUSEA Zolpidem Tartrate (Ambien -) 10 mg PO HS PRN PRN Reason: INSOMNIA - Objective Vital Signs: Vital Signs Temperature 98.2 F 02/12/17 06:33 Pulse Rate 74 02/12/17 06:33 Respiratory Rate 15 02/12/17 06:33 Blood Pressure 148/93 02/12/17 06:33 O2 Sat by Pulse Oximetry (%) 97 02/11/17 21:00 Labs: CBC, BMP 02/11/17 06:00 02/11/17 06:00 INR, PTT INR 0.99 (0.82-1.09) 02/10/17 02:54 Problem List - Problems (1) Diabetes Assessment/Plan: UNCONTROLLED WITH HGA1C OF 7.7 Code(s): E11.9 - TYPE 2 DIABETES MELLITUS WITHOUT COMPLICATIONS (2) RLQ abdominal pain Assessment/Plan: DUE TO RIGHT HYDRONEPHROSIS. URETEROSCOPY Code(s): R10.31 - RIGHT LOWER QUADRANT PAIN (3) Renal colic on right side Code(s): N23 - UNSPECIFIED RENAL COLIC (4) Renal insufficiency Code(s): N28.9 - DISORDER OF KIDNEY AND URETER, UNSPECIFIED (5) Abnormal pancreas function test Code(s): R94.8 - ABNORMAL RESULTS OF FUNCTION STUDIES OF ORGANS AND SYSTEMS Assessment/Plan LABS PAIN MANAGEMENT PHYSICAL THERAPY IV ABX WENT FOR THE PROCEDURE YESTERDAY, TOLERATED WELL. NO PAIN AT THE MOMENT. PLAN D/C
[2017-02-12] MEDS: LEVOFLOXACIN 500 MG IVPB 100 ML IVPB SCH (10:58)
[2017-02-12] MEDS: PANTOPRAZOLE SODIUM 100 ML IVPB SCH (10:58)
[2017-02-12 11:54] LABS: BASOPHIL 0.4 % (0-2.0); MCH 30.5 pg (25.7-33.7); MCHC 34.1 g/dl (32.0-35.9); MEAN CELL VOLUME 89.3 fl (80-96); MEAN PLT VOLUME 7.6 fl (7.5-11.1); NEUTROPHILS 70.6 % (42.8-82.8); PLATELET COUNT 239 K/MM3 (134-434); WHITE BLOOD COUNT 12.5 K/mm3 (4.0-10.0)
[2017-02-12 13:05] LABS: ALBUMIN 3.4 g/dl (3.4-5.0); ALK PHOS 73 U/L (45-117); AMYLASE 63 U/L (25-115); ANION GAP 9 (8-16); BILIRUBIN,TOTAL 0.6 mg/dL (0.2-1.0); CALCIUM 9.6 mg/dL (8.5-10.1); CO2 30 mmol/L (21-32); CREATININE 0.9 mg/dL (0.7-1.3); GLUCOSE,RANDOM 144 mg/dL (74-106); SGOT/AST 11 U/L (15-37); SGPT/ALT 21 U/L (12-78); TOT PROT 7.1 g/dl (6.4-8.2)
[2017-02-12] MEDS: DEXTROSE 5%-NORMAL SALINE 1,000 ML IV SCH (15:55)
[2017-02-12] MEDS: KETOROLAC TROMETHAMINE 10 MG TABLET PO PRN (18:09)
[2017-02-13] MEDS: DEXTROSE 5%-NORMAL SALINE 1,000 ML IV SCH ×2 (02:31→06:07)
[2017-02-13] MEDS: KETOROLAC TROMETHAMINE 10 MG TABLET PO PRN (05:03)
[2017-02-13] MEDS: INSULIN SLIDING SCALE (NOVOLOG) 1 VIAL SQ SCH ×2 (06:09→12:00)
[2017-02-13 06:26] VITALS: BP 148/81; PULSE 88; TEMP 98.9
[2017-02-13 08:11] LABS: AMYLASE 73 U/L (25-115)
--- NOTE | 2017-02-13 09:52 | PATH ---
Surgical Pathology Report Patient Name: CHRISTOPHE BUTCHER JR Med. Rec. #: [id number] /Age/Gender: 1955 (Age: 61) / M Account: [id number] Location: [address] [place] [address]/[facility] Taken: 02/12/2017 Received: 02/12/2017 Reported: 02/13/2017 Physicians: Molina Griffin Specimen(s) Received RIGHT URETERAL STONE Clinical History Right ureteral stone Final Diagnosis CALCULUS, RIGHT URETER, EXTRACTION: CALCULI SUBMITTED FOR CHEMICAL ANALYSIS (gross only). Electronically Signed Migel Mcwilliams M.D. Gross Description Received fresh labeled "right ureteral stone," is a 0.2 cm in greatest dimension mooney, irregular calculus which is sent for chemical analysis. /02/12/2017 [facility]/02/12/2017
[2017-02-13] MEDS: PANTOPRAZOLE SODIUM 100 ML IVPB SCH (09:54)
[2017-02-13] MEDS: LEVOFLOXACIN 500 MG IVPB 100 ML IVPB SCH (09:54)
--- NOTE | 2017-02-13 11:53 | DS ---
Physical Examination Vital Signs: Vital Signs Temperature 98.9 F 02/13/17 06:25 Pulse Rate 88 02/13/17 06:25 Respiratory Rate 18 02/13/17 06:25 Blood Pressure 148/81 02/13/17 06:25 O2 Sat by Pulse Oximetry (%) 97 02/12/17 09:00 Labs: CBC, BMP 02/12/17 11:45 02/12/17 11:45 Discharge Summary Reason For Visit: PANCREATITIS RENAL COLIC ON RIGHT SIDE Current Active Problems Abnormal pancreas function test (Acute) Diabetes (Acute) Pancreatitis (Acute) RLQ abdominal pain (Acute) Renal colic on right side (Acute) Renal insufficiency (Acute) Hospital Course: - Admission History of Present Illness: 61 year old male with significant past medical history of diabetes who presents to the ED for 1 day of intermittent right lower quadrant. Patient reports associated nausea and vomiting. Denies diarrhea. States he is unable to tolerate foods or liquids. Patient denies any radiation of pain to the flank or groin. - Past Medical History [employer]: No: CVA Cardiovascular: No: CAD, HTN, Hyperlipdemia Renal/: Yes: Renal Calculi - Smoking History Smoking history: Never smoked Have you smoked in the past 12 months: No - Alcohol/Substance Use Hx Alcohol Use: No pacreatits trulicity was stopped Operative Note - Note: Operative Date: 02/11/17 Pre-Operative Diagnosis: right ureteral stone with hydronephrosis Operation: cystoscopy/right retrograde pyelogram/right urereteroscopic stone basketing/right ureteral stent placement Findings: 4mm distal stone Post-Operative Diagnosis: Same as Pre-op Surgeon: Molina Griffin Anesthesia: General Specimens Removed: right ureteral stone Drains & Tubes with Location: 6 fr/24 cm stent Operative Report Dictated: Yes iv abx Condition: Stable - Instructions Referrals: Juan Melvin MD [Primary Care Provider] -
--- NOTE | 2017-02-13 12:18 | PN ---
Progress Note, Physician Chief Complaint: RLQ ABDOMINAL PAIN History of Present Illness: 61 year old male with significant past medical history of diabetes who presents to the ED for 1 day of intermittent right lower quadrant. Patient reports associated nausea and vomiting. Denies diarrhea. States he is unable to tolerate foods or liquids. Patient denies any radiation of pain to the flank or groin. CT ABDOMEN SHOWED MILD HYDRONEPHROSIS OF RIGHT KIDNEY AND RIGHT UVJ STONE. RIGHT URETEROSCOPY WITH STONE BASKETING DONE TODAY. WENT FOR THE PROCEDURE YESTERDAY, TOLERATED WELL. NO PAIN AT THE MOMENT. - Current Medication List Current Medications: Active Medications Fentanyl (Sublimaze Injection -) 50 mcg IVPUSH [id number] PRN PRN Reason: PAIN Stop: 02/14/17 20:22 Dextrose/Sodium Chloride (D5-Ns -) 1,000 mls @ 75 mls/hr IV ASDIR [facility] Last Admin: 02/13/17 06:07 Dose: 75 mls/hr Levofloxacin (Levaquin 500 Mg Premixed Ivpb -) 100 mls @ 100 mls/hr IVPB DAILY [facility] Last Admin: 02/13/17 09:54 Dose: 100 mls/hr Pantoprazole Sodium (Protonix 40mg Ivpb (Pre-Docked)) 100 mls @ 200 mls/hr IVPB DAILY [facility] Last Admin: 02/13/17 09:54 Dose: 200 mls/hr Insulin Aspart (Novolog Vial Sliding Scale -) 1 vial SQ ACHS DARLENE PRN Reason: Protocol Last Admin: 02/13/17 06:09 Dose: Not Given Ketorolac Tromethamine (Toradol) 10 mg PO TID PRN PRN Reason: PAIN Stop: 02/17/17 21:59 Last Admin: 02/13/17 05:03 Dose: 10 mg Ondansetron HCl (Zofran Injection) 4 mg IVPB Q6H PRN PRN Reason: NAUSEA Zolpidem Tartrate (Ambien -) 10 mg PO HS PRN PRN Reason: INSOMNIA Last Admin: 02/12/17 21:47 Dose: 10 mg - Objective Vital Signs: Vital Signs Temperature 98.9 F 02/13/17 06:25 Pulse Rate 88 02/13/17 06:25 Respiratory Rate 18 02/13/17 06:25 Blood Pressure 148/81 02/13/17 06:25 O2 Sat by Pulse Oximetry (%) 97 06/15/17 09:00 Constitutional: Yes: Well Nourished, No Distress, Calm Cardiovascular: Yes: Regular Rate and Rhythm Respiratory: Yes: Regular Genitourinary: Yes: WNL Edema: No Neurological: Yes: Alert, Oriented Labs: CBC, BMP 02/12/17 11:45 02/12/17 11:45 INR, PTT INR 0.99 (0.82-1.09) 02/10/17 02:54 Problem List - Problems (1) Diabetes Assessment/Plan: UNCONTROLLED WITH HGA1C OF 7.7, DISCHARGED ON AMB MEDS, TO BE FOLLOWED BY DR MATHEW Code(s): E11.9 - TYPE 2 DIABETES MELLITUS WITHOUT COMPLICATIONS (2) RLQ abdominal pain Assessment/Plan: RESOLVED Code(s): R10.31 - RIGHT LOWER QUADRANT PAIN (3) Renal colic on right side Assessment/Plan: RESOLVED Code(s): N23 - UNSPECIFIED RENAL COLIC (4) Renal insufficiency Code(s): N28.9 - DISORDER OF KIDNEY AND URETER, UNSPECIFIED (5) Abnormal pancreas function test Assessment/Plan: RESOLVED Code(s): R94.8 - ABNORMAL RESULTS OF FUNCTION STUDIES OF ORGANS AND SYSTEMS Assessment/Plan D/C PAVAN ON LEVAQUIN 500 MG DAILY FOR 7 DAYS, FOLLOW UP WITH PCP AND RENAL IN 1 WEEK.
--- NOTE | 2017-02-13 23:45 | PN ---
Progress Note (short form) - Note Progress Note: right flank colic pain improved afebrile,tolerating diet well sugar stable,for discharge home Abnormal Lab Results 02/13/17 06:40 Hemoglobin A1c % 7.9 H D Laboratory Results - last 24 hr 02/13/17 02/13/17 02/13/17 05:45 06:40 06:40 POC Glucometer 153 Hemoglobin A1c % 7.9 H D Total Amylase 73 Lipase 260 02/13/17 12:15 POC Glucometer 120 Hemoglobin A1c % Total Amylase Lipase dm improved glycemia renal colic nephrolithiasis plan discharge home toujeo 15 units am glipizide 5mg bid follow up outpatient Problem List - Problems (1) Diabetes Code(s): E11.9 - TYPE 2 DIABETES MELLITUS WITHOUT COMPLICATIONS (2) Pancreatitis Code(s): K85.90 - ACUTE PANCREATITIS WITHOUT NECROSIS OR INFECTION, UNSP Qualifiers: Chronicity: acute Pancreatitis type: other Acute pancreatitis complication: unspecified Qualified Code(s): K85.80 - Other acute pancreatitis without necrosis or infection; K85.8 - Other acute pancreatitis (3) RLQ abdominal pain Code(s): R10.31 - RIGHT LOWER QUADRANT PAIN (4) Renal colic on right side Code(s): N23 - UNSPECIFIED RENAL COLIC
== END 2017-02-13 12:42 | disposition home or self-care (01) | DRG 446 ==
LOC: JER 00:36 → JERBED 06:13 → J5S 16:09
PROVIDERS: ADMIT Family Medicine; ATTEND Family Medicine
PROC: 0T768DZ Dilation of Right Ureter with Intraluminal Device, Via Natural or Artificial Opening Endoscopic (ICD-10-PCS; 2017-02-11)
PROC: BT1DZZZ Fluoroscopy of Right Kidney, Ureter and Bladder (ICD-10-PCS; 2017-02-11)
PROC: 0TC68ZZ Extirpation of Matter from Right Ureter, Via Natural or Artificial Opening Endoscopic (ICD-10-PCS; principal; 2017-02-11 17:30)
DX: N13.2 Hydronephrosis with renal and ureteral calculous obstruction (principal); N28.9 Disorder of kidney and ureter, unspecified; R94.8 Abnormal results of function studies of other organs and systems; R10.31 Right lower quadrant pain; E11.43 Type 2 diabetes mellitus with diabetic autonomic (poly)neuropathy; K31.84 Gastroparesis; E11.65 Type 2 diabetes mellitus with hyperglycemia; K85.80 Other acute pancreatitis without necrosis or infection
CPT/HCPCS: 36415; 71010-TC; 74176-TC; 76000-TC; 80053; 81003; 81015; 82150; 82360; 83036; 83690; 83880; 85025; 85610; 88300-TC; 93005; 93010; 94760; 97116-GP; 97161-GP; 99285-25

== ENCOUNTER 2021-02-18 15:33 | Emergency (ER) | payer OTHER ==
[2021-02-18 15:50] VITALS: BMI 27.3
[2021-02-18] MEDS ORDERED: LIDOCAINE 5% TOPICAL PATCH TP ONE (16:21)
[2021-02-18] MEDS ORDERED: ACETAMINOPHEN 500 MG TABLET (FP) PO ONE (16:21)
[2021-02-18] MEDS ORDERED: SODIUM CHLORIDE 0.9% 500 ML INFUS.BAG IV ONE (16:39)
[2021-02-18] MEDS ORDERED: ACETAMINOPHEN 325 MG TABLET (FP) ONE (16:43)
[2021-02-18] MEDS ORDERED: LIDOCAINE 5% TOPICAL PATCH ONE (16:43)
[2021-02-18 17:12] LABS: BASO % 0.6 % (0-2.0); EOS % 1.2 % (0-4.5); HEMOGLOBIN 14.4 GM/dL (11.7-16.9); LYMPH % 13.3 % (8-40); MCHC 34.3 g/dl (32.0-35.9); MEAN CELL VOLUME 87.4 fl (80-96); NEUT % 72.9 % (42.8-82.8); PLATELET COUNT 238 10^3/uL (134-434); RBC 4.81 M/mm3 (4.00-5.60); RDW 13.5 % (11.9-15.9); WHITE BLOOD COUNT 10.3 K/mm3 (4.0-10.0)
[2021-02-18 17:13] LABS: EPI CELLS 3 /uL (0-25.1); HYALINE CASTS 0 /uL (0-3.1); URINE APPEARANCE CLEAR; URINE BACTERIA 714 /uL (0-1359); URINE BILIRUBIN NEGATIVE (NEGATIVE); URINE COLOR YELLOW; URINE GLUCOSE (UA) 3+ (NEGATIVE); URINE KETONE TRACE (NEGATIVE); URINE LEUK ESTERASE NEGATIVE (NEGATIVE); URINE NITRITE NEGATIVE (NEGATIVE); URINE PROTEIN 2+ (NEGATIVE); URINE RBC 4 /uL (0-23.9); URINE WBC 3 /uL (0-25.8)
[2021-02-18 17:30] LABS: CHLORIDE 105 mmol/L (98-107); SODIUM 139 mmol/L (136-145)
[2021-02-18 17:32] LABS: BLOOD UREA NITROGEN 26.4 mg/dL (7-18); CALCIUM 8.9 mg/dL (8.5-10.1)
[2021-02-18 17:33] LABS: ALBUMIN 3.8 g/dl (3.4-5.0); ANION GAP 8 MMOL/L (8-16); CO2 27 mmol/L (21-32); GLUCOSE,RANDOM 300 mg/dL (74-106); LIPASE 138 U/L (73-393)
[2021-02-18 17:35] LABS: CREATININE 0.8 mg/dL (0.55-1.3)
[2021-02-18 17:36] LABS: SGOT/AST 11 U/L (15-37); SGPT/ALT 28 U/L (13-61)
[2021-02-18 17:37] LABS: BILIRUBIN,TOTAL 0.9 mg/dL (0.2-1); TOT PROT 7.4 g/dl (6.4-8.2)
[2021-02-18 17:38] LABS: ALK PHOS 69 U/L (45-117)
[2021-02-18 19:46] VITALS: BP 155/82; PULSE 78
[2021-02-18] MEDS ORDERED: LIDOCAINE PATCH REMOVAL MC SCH (22:00)
== END 2021-02-18 19:46 | disposition home or self-care (01) ==
LOC: JER 15:33
DX: R73.9 Hyperglycemia, unspecified (principal); M54.41 Lumbago with sciatica, right side
CPT/HCPCS: 36415; 71046-TC-FY; 74177-TC; 80053; 81003; 82550; 82962; 83605; 83690; 84484; 85025; 87086; 93005; 93010; 99285-25; Q9967

== ENCOUNTER 2021-04-15 13:38 | Inpatient (IN) | payer OTHER ==
[2021-04-15] MEDS ORDERED: ACETAMINOPHEN 1000 MG/100 ML VIAL (NON FORMULARY) IVPB ONE (17:32)
[2021-04-15] MEDS ORDERED: ACETAMINOPHEN INJECTION 100 ML IVPB ONE (17:52)
[2021-04-15 17:59] LABS: BASO % 1.1 % (0-2.0); EOS % 4.7 % (0-4.5); HEMATOCRIT 35.7 % (35.4-49); HEMOGLOBIN 12.6 GM/dL (11.7-16.9); LYMPH % 24.5 % (8-40); MCH 31.2 pg (25.7-33.7); MCHC 35.3 g/dl (32.0-35.9); MEAN CELL VOLUME 88.4 fl (80-96); MEAN PLT VOLUME 7.7 fl (7.5-11.1); MONO % 12.6 % (3.8-10.2); NEUT % 57.1 % (42.8-82.8); PLATELET COUNT 277 10^3/uL (134-434); RBC 4.03 M/mm3 (4.00-5.60); RDW 13.1 % (11.9-15.9); WHITE BLOOD COUNT 8.9 K/mm3 (4.0-10.0)
[2021-04-15 18:11] LABS: ALBUMIN 3.2 g/dl (3.4-5.0); BLOOD UREA NITROGEN 24.4 mg/dL (7-18)
[2021-04-15 18:14] LABS: CREATININE 0.8 mg/dL (0.55-1.3)
[2021-04-15 18:16] LABS: BILIRUBIN,TOTAL 0.2 mg/dL (0.2-1); TOT PROT 6.7 g/dl (6.4-8.2)
[2021-04-15] MEDS ORDERED: traMADol HCL 50 MG TABLET ONE (23:25)
[2021-04-15] MEDS: traMADol HCL 50 MG TABLET PO PRN (23:27)
[2021-04-16 04:14] VITALS: BMI 25.0
[2021-04-16] MEDS: ACETAMINOPHEN 325 MG TABLET (FP) PO PRN ×2 (04:23→18:51)
[2021-04-16] MEDS: GABAPENTIN 300 MG CAPSULE PO SCH ×4 (05:49→21:58)
[2021-04-16] MEDS: INSULIN SLIDING SCALE (NOVOLOG) 1 VIAL SQ SCH ×4 (06:01→21:01)
[2021-04-16] MEDS: TAMSULOSIN HCL 0.4 MG CAP PO SCH (08:58)
[2021-04-16 08:59] LABS: BASO % 1.5 % (0-2.0); EOS % 4.7 % (0-4.5); HEMATOCRIT 36.4 % (35.4-49); HEMOGLOBIN 12.9 GM/dL (11.7-16.9); LYMPH % 33.2 % (8-40); MCH 31.1 pg (25.7-33.7); MCHC 35.4 g/dl (32.0-35.9); MEAN PLT VOLUME 8.1 fl (7.5-11.1); MONO % 11.3 % (3.8-10.2); NEUT % 49.3 % (42.8-82.8); PLATELET COUNT 286 10^3/uL (134-434); RBC 4.14 M/mm3 (4.00-5.60); WHITE BLOOD COUNT 8.3 K/mm3 (4.0-10.0)
[2021-04-16 09:12] LABS: CALCIUM 8.5 mg/dL (8.5-10.1)
[2021-04-16 09:13] LABS: ALBUMIN 3.1 g/dl (3.4-5.0); BLOOD UREA NITROGEN 16.1 mg/dL (7-18)
[2021-04-16 09:17] LABS: CREATININE 0.7 mg/dL (0.55-1.3)
[2021-04-16 09:18] LABS: BILIRUBIN,TOTAL 0.2 mg/dL (0.2-1); TOT PROT 6.7 g/dl (6.4-8.2)
[2021-04-16] MEDS: LOSARTAN POTASSIUM 50 MG TABLET PO SCH (09:37)
[2021-04-16] MEDS ORDERED: EMPAGLIFLOZIN 25 MG PO SCH (10:00)
[2021-04-16] MEDS: METOPROLOL TARTRATE 50 MG TABLET (FP) PO SCH (10:49)
[2021-04-16] MEDS ORDERED: INSULIN (NOVOLOG) ASPART 100 UNITS/ML 10ML VIAL ONE ×2 (10:54→20:48)
[2021-04-16] MEDS: traMADol HCL 50 MG TABLET PO PRN ×2 (11:53→21:00)
[2021-04-16] MEDS: POLYETHYLENE GLYCOL (HEALTHYLAX) 3350 17 GM PACKET PO SCH ×2 (13:50→21:02)
[2021-04-16] MEDS: PANTOPRAZOLE 40 MG TABLET PO SCH (13:50)
[2021-04-16] MEDS: ROSUVASTATIN CA 20 MG TABLET (FP) PO SCH (21:00)
[2021-04-16] MEDS: INSULIN (LEVEMIR) 100 UNITS/ML UNITS SQ SCH (21:01)
[2021-04-16] MEDS ORDERED: TIZANIDINE HCL 4 MG TABLET PO PRN (21:04)
[2021-04-16] MEDS ORDERED: ZOLPIDEM TARTRATE 5 MG TABLET PO PRN (22:00)
[2021-04-17] MEDS: POLYETHYLENE GLYCOL (HEALTHYLAX) 3350 17 GM PACKET PO SCH ×3 (06:31→21:00)
[2021-04-17] MEDS: traMADol HCL 50 MG TABLET PO PRN ×3 (06:36→20:59)
[2021-04-17] MEDS: INSULIN SLIDING SCALE (NOVOLOG) 1 VIAL SQ SCH ×4 (06:43→21:00)
[2021-04-17] MEDS: TAMSULOSIN HCL 0.4 MG CAP PO SCH (08:40)
[2021-04-17] MEDS: amLODIPine BESYLATE 2.5 MG TABLET (FP) PO SCH (09:16)
[2021-04-17] MEDS: METOPROLOL TARTRATE 50 MG TABLET (FP) PO SCH (09:16)
[2021-04-17] MEDS: GABAPENTIN 300 MG CAPSULE PO SCH ×2 (09:16→20:59)
[2021-04-17] MEDS: LOSARTAN POTASSIUM 50 MG TABLET PO SCH (09:16)
[2021-04-17] MEDS: PANTOPRAZOLE 40 MG TABLET PO SCH (09:16)
[2021-04-17] MEDS: EMPAGLIFLOZIN 25 MG PO SCH (09:17)
[2021-04-17 09:36] LABS: BASO % 0.7 % (0-2.0); EOS % 3.3 % (0-4.5); HEMATOCRIT 40.5 % (35.4-49); LYMPH % 26.4 % (8-40); MCH 30.2 pg (25.7-33.7); MCHC 34.6 g/dl (32.0-35.9); MEAN CELL VOLUME 87.1 fl (80-96); MEAN PLT VOLUME 7.6 fl (7.5-11.1); MONO % 9.2 % (3.8-10.2); NEUT % 60.4 % (42.8-82.8); PLATELET COUNT 326 10^3/uL (134-434); RBC 4.66 M/mm3 (4.00-5.60); RDW 13.3 % (11.9-15.9); WHITE BLOOD COUNT 9.3 K/mm3 (4.0-10.0)
[2021-04-17 10:19] LABS: CREATININE 0.6 mg/dL (0.55-1.3)
[2021-04-17] MEDS ORDERED: PT OWN MED DRAWER 7, Y5N ONE (10:31)
[2021-04-17] MEDS ORDERED: INSULIN (NOVOLOG) ASPART 100 UNITS/ML 10ML VIAL ONE (11:37)
[2021-04-17] MEDS ORDERED: ZOLPIDEM TARTRATE 5 MG TABLET PO PRN (19:31)
[2021-04-17] MEDS: ROSUVASTATIN CA 20 MG TABLET (FP) PO SCH (20:59)
[2021-04-17] MEDS: INSULIN (LEVEMIR) 100 UNITS/ML UNITS SQ SCH (21:00)
[2021-04-18] MEDS: POLYETHYLENE GLYCOL (HEALTHYLAX) 3350 17 GM PACKET PO SCH ×3 (05:08→21:14)
[2021-04-18] MEDS: INSULIN SLIDING SCALE (NOVOLOG) 1 VIAL SQ SCH ×4 (06:02→21:15)
[2021-04-18] MEDS: traMADol HCL 50 MG TABLET PO PRN ×2 (08:31→16:24)
[2021-04-18] MEDS: TAMSULOSIN HCL 0.4 MG CAP PO SCH (08:31)
[2021-04-18] MEDS: EMPAGLIFLOZIN 25 MG PO SCH (09:04)
[2021-04-18] MEDS: METOPROLOL TARTRATE 50 MG TABLET (FP) PO SCH (09:04)
[2021-04-18] MEDS: PANTOPRAZOLE 40 MG TABLET PO SCH (09:04)
[2021-04-18] MEDS ORDERED: ACETAMINOPHEN 1000 MG/100 ML VIAL (NON FORMULARY) IVPB ONE (09:04)
[2021-04-18] MEDS: LOSARTAN POTASSIUM 50 MG TABLET PO SCH (09:04)
[2021-04-18] MEDS: GABAPENTIN 300 MG CAPSULE PO SCH ×2 (09:04→21:15)
[2021-04-18] MEDS: amLODIPine BESYLATE 2.5 MG TABLET (FP) PO SCH (09:04)
[2021-04-18] MEDS: LIDOCAINE 5% TOPICAL PATCH TP SCH (10:07)
[2021-04-18] MEDS: ROSUVASTATIN CA 20 MG TABLET (FP) PO SCH (21:14)
[2021-04-18] MEDS: INSULIN (LEVEMIR) 100 UNITS/ML UNITS SQ SCH (21:14)
[2021-04-18] MEDS ORDERED: LIDOCAINE PATCH REMOVAL MC SCH (22:00)
[2021-04-19] MEDS: traMADol HCL 50 MG TABLET PO PRN ×2 (04:34→12:16)
[2021-04-19] MEDS: POLYETHYLENE GLYCOL (HEALTHYLAX) 3350 17 GM PACKET PO SCH (05:55)
[2021-04-19] MEDS: INSULIN SLIDING SCALE (NOVOLOG) 1 VIAL SQ SCH ×3 (06:00→11:45)
[2021-04-19] MEDS: LOSARTAN POTASSIUM 50 MG TABLET PO SCH (09:18)
[2021-04-19] MEDS: PANTOPRAZOLE 40 MG TABLET PO SCH (09:19)
[2021-04-19] MEDS: TAMSULOSIN HCL 0.4 MG CAP PO SCH (09:19)
[2021-04-19] MEDS: GABAPENTIN 300 MG CAPSULE PO SCH (09:19)
[2021-04-19] MEDS: amLODIPine BESYLATE 2.5 MG TABLET (FP) PO SCH (09:19)
[2021-04-19] MEDS: LIDOCAINE 5% TOPICAL PATCH TP SCH (09:20)
[2021-04-19] MEDS: METOPROLOL TARTRATE 50 MG TABLET (FP) PO SCH (09:20)
[2021-04-19] MEDS: EMPAGLIFLOZIN 25 MG PO SCH (09:24)
[2021-04-19 10:01] LABS: HEMOGLOBIN 13.4 GM/dL (11.7-16.9); MCH 30.6 pg (25.7-33.7); MCHC 35.3 g/dl (32.0-35.9); MEAN CELL VOLUME 86.5 fl (80-96); MEAN PLT VOLUME 7.6 fl (7.5-11.1); PLATELET COUNT 321 10^3/uL (134-434); RBC 4.39 M/mm3 (4.00-5.60); RDW 13.1 % (11.9-15.9)
[2021-04-19 10:19] LABS: CALCIUM 8.6 mg/dL (8.5-10.1)
[2021-04-19 10:20] LABS: ALBUMIN 3.3 g/dl (3.4-5.0); BLOOD UREA NITROGEN 27.3 mg/dL (7-18)
[2021-04-19 10:23] LABS: CREATININE 0.6 mg/dL (0.55-1.3)
[2021-04-19 10:24] LABS: BILIRUBIN,TOTAL 0.4 mg/dL (0.2-1)
[2021-04-19 12:41] VITALS: BP 153/85; PULSE 70; TEMP 98
[2021-04-19] MEDS ORDERED: PT OWN MED DRAWER 7, Y5N ONE (13:38)
[2021-04-20] MEDS ORDERED: amLODIPine BESYLATE 5 MG TABLET (FP) PO SCH (10:00)
[2021-04-20] MEDS ORDERED: POLYETHYLENE GLYCOL (HEALTHYLAX) 3350 17 GM PACKET PO SCH (10:00)
== END 2021-04-19 14:10 | disposition home health service (06) | DRG 552 ==
LOC: JER 13:38 → JERBED 18:54 → J8W 04-16 03:48
PROVIDERS: ADMIT Internal Medicine; ATTEND Family Medicine
DX: M51.16 Intervertebral disc disorders with radiculopathy, lumbar region (principal); M51.37 Other intervertebral disc degeneration, lumbosacral region; E11.65 Type 2 diabetes mellitus with hyperglycemia; I10 Essential (primary) hypertension; E78.5 Hyperlipidemia, unspecified; N40.0 Benign prostatic hyperplasia without lower urinary tract symptoms; D35.02 Benign neoplasm of left adrenal gland; D35.01 Benign neoplasm of right adrenal gland; D64.9 Anemia, unspecified; E11.42 Type 2 diabetes mellitus with diabetic polyneuropathy; K59.09 Other constipation; Z87.19 Personal history of other diseases of the digestive system; Z86.73 Personal history of transient ischemic attack (TIA), and cerebral infarction without residual deficits; Z79.4 Long term (current) use of insulin
CPT/HCPCS: 36415; 71046-TC-FY; 76700-TC; 80048; 80053; 82010; 82105; 82728; 82962; 83036; 83516; 83540; 83550; 85025; 85027; 86038; 86140; 86704; 86705; 86706; 87340; 87517; 87522; 93005; 93010; 93306-TC; 97116-GP; 97161-GP; 99285-25; C9803; J0131; U0003; U0005

== ENCOUNTER 2021-05-10 04:16 | Day surgery (SDC) | payer OTHER ==
[2021-05-10 07:17] VITALS: BMI 22.7
[2021-05-10] MEDS ORDERED: LIDOCAINE HCL 1% PRESERVATIVE FREE - 30ML VIAL IJ ONE (08:59)
[2021-05-10] MEDS ORDERED: BUPIVACAINE HCL/PF 0.75% 10 ML VIAL NR ONE ×4 (09:00→09:04)
[2021-05-10] MEDS ORDERED: IOHEXOL 180 MG/1 ML ML IJ ONE (09:01)
[2021-05-10 10:19] VITALS: BP 139/89; PULSE 78; TEMP 98.9
== END 2021-05-10 10:13 | disposition home or self-care (01) ==
LOC: JASU-SURG 04:16
PROVIDERS: ATTEND Pain Medicine Pain Medicine
PROC: 3E0T33Z Introduction of Anti-inflammatory into Peripheral Nerves and Plexi, Percutaneous Approach (ICD-10-PCS; 2021-05-10)
PROC: 3E0T3BZ Introduction of Anesthetic Agent into Peripheral Nerves and Plexi, Percutaneous Approach (ICD-10-PCS; principal; 2021-05-10 08:30)
DX: M47.816 Spondylosis without myelopathy or radiculopathy, lumbar region (principal)
CPT/HCPCS: 76000-TC-FY